=== PATIENT | male | born 1950 | race American Indian/Alaskan Native ===

== ENCOUNTER 2017-03-12 08:47 | Outpatient (CLI) | payer MEDICARE ==
--- NOTE | 2017-03-12 10:24 | Fluoroscopy Report ---
Air-contrast upper GI: History: Hiatal hernia with GERD. Findings: Transit of barium through the esophagus in prone position and upright position appears normal. In supine position there is extrinsic pressure noted , from the left ventricle, on the distal third of the esophagus causing delay in transit of barium. There is also reflux noted from the region up to the cervical esophagus. No hiatal hernia. Evidence of gastritis. Gastric emptying appears normal. No ulcer in duodenum. 5cm diverticulum third part of duodenum. Smaller diverticulum distally. No extrinsic or intrinsic filling defects in the stomach. Impression: Evidence of marked gastritis. No ulceration. Duodenal diverticula. Reflux extending from distal esophagus to cervical esophagus as detailed above
== END 2017-03-12 08:48 | disposition home or self-care (01) ==
LOC: FLUORO 08:47
PROVIDERS: ATTEND Internal Medicine
DX: K57.10 Diverticulosis of small intestine without perforation or abscess without bleeding (principal); K21.9 Gastro-esophageal reflux disease without esophagitis; K29.70 Gastritis, unspecified, without bleeding
CPT/HCPCS: 74246